=== PATIENT | female | born 1945 | race Caucasian/White ===

== ENCOUNTER → 2017-10-27 | Day surgery (SDC) | payer OTHER, MEDICAID ==
--- NOTE | 2017-10-25 18:24 | MH ---
cc: Myles HERNANDEZ DATE OF ADMISSION 10/27/2017 ADMISSION DIAGNOSIS Osteoarthritic degeneration of her right hip now being admitted for right total hip arthroplasty HISTORY OF PRESENT ILLNESS This pleasant 72-year-old female is being admitted today for right total hip arthroplasty due to severe painful osteoarthritic degeneration right hip. OTHER PAST HISTORY 1. History of hypertension, 2. Type 2 diabetes. MEDICATIONS Current, 1. Calcium citrate with D. 2. Magnesium 250 3. B complex vitamin 4. Levemir subcutaneous solution. 5. Lisinopril. 6. Oxybutinin. 7. Tramadol for pain. REVIEW OF SYSTEMS Noncontributory. FAMILY HISTORY Noncontributory PAST SURGERIES None listed, SOCIAL HISTORY She does not smoke or drink. ALLERGIES SULFA. PHYSICAL EXAMINATION GENERAL: We find a 72-year old female well-developed, well-nourished oriented x3 complaining of pain in her right hip. VITAL SIGNS: Blood pressure 130/82, pulse 92 and regular, respirations 18, temperature 97.9, pulse oximetry 97% on room air. HEENT: Eyes PERRL, EOMI. Ears, nose, mouth clear. NECK: Supple LUNGS: Clear HEART: Regular rate. ABDOMEN: Soft. Positive bowel sounds, nontender. EXTREMITIES: Reveals right hip to have decreased range of motion neurovascularly to her toes. IMPRESSION Severe painful osteoarthritic degeneration right hip. PLAN Admission right total hip arthroplasty today. The patient given prescription for postoperative pain anticoagulation control in the office, plans on going home after surgical stay in the hospital. She understands to use the surgical wipes and Bactroban ointment. MD CONRAD Bocanegra/ /5:34 PM /5:46 PM
[~2017-10-27] VITALS: Ht 165.1 cm; Wt 85.0 kg
[~2017-10-27] MED LIST: CHLORHEXIDINE GLUCONATE 2 % 1 PACK (2 CLOTHS) TOPICAL PRN; CHLORHEXIDINE GLUCONATE 4% SOLN 120 ML BTL TOPICAL SCH; CYAN1000P IM; D 50CAP2 PO; EXPAREL PERI-ARTICULAR INJECTION (TOTAL VOL. 120 ML) P-ARTICULR SCH; HYDR-3516 PO; LACTATED RINGER'S 1000 ML IV PRN; LEVEMIR SQ; LISI10TA3 PO; LOVA10TA PO; METOPROLOL TARTRATE 25 MG TAB PO PRN; OXYB5TAB8 PO; PANT20TA2 PO; POVIDONE IODINE 5% (ANTISEPSIS KIT) 4 APPLICATIONS EACH NARE PRN; SODIUM CHLORID 0.9% 500 ML IV PRN; TRANEXAMIC ACID INJ 850 MG in SODIUM CHLORIDE 0.9% INJ 100 ML IV SCH; VANCOMYCIN 1000 MG/NS 250 ML (for <70 kg) IV SCH; ceFAZolin 2 GM PREMIX 50 ML IV SCH; ceFAZolin INJ 1,000 MG VIAL ONE
[2017-10-27 06:15] VITALS: BP 149/83; PULSE 92; RESP 22; TEMP 99.6; O2SAT 100
[2017-10-27 06:48] LABS: BACTERIA, URINE OCC /hpf; BILIRUBIN, URINE NEG (NEG); BLOOD, URINE NEG (NEG); GLUCOSE,URINE NEG (NEG); KETONE, URINE NEG (NEG); MUCUS URINE FEW /lpf (OCC); NITRITE,URINE NEG (NEG); PH, URINE 5.5 (5.0-8.5); SQUAMOUS EPITHELIAL CELL URINE 14 /hpf (0-5); URINE COLOR YELLOW (YELLW/STRAW); URINE LEUKOCYTE ESTERASE SMALL (NEG)
[2017-10-27 07:26] LABS: AUTOMATED NEUTROPHIL # 4.1 TH/MM3 (1.8-7.7); BASOPHIL # 0.1 TH/MM3 (0-0.2); BASOPHIL % 0.9 % (0.0-2.0); EOSINOPHIL # 0.1 TH/MM3 (0-0.4); EOSINOPHIL % 1.4 % (0.0-4.0); HEMATOCRIT 26.9 % (35.0-46.0); HEMOGLOBIN 9.6 GM/DL (11.6-15.3); LYMPHOCYTE # 1.3 TH/MM3 (1.0-4.8); MEAN CELL VOLUME 88.1 FL (80.0-100.0); MEAN CORPUSCULAR HEMOGLOBIN 31.4 PG (27.0-34.0); MEAN CORPUSCULAR HGB CONC 35.7 % (32.0-36.0); MEAN PLATELET VOLUME 7.2 FL (7.0-11.0); MONO % 6.8 % (0.0-8.0); MONOCYTE # 0.4 TH/MM3 (0-0.9); NEUT % 68.9 % (16.0-70.0); PLATELET COUNT 161 TH/MM3 (150-450); RED BLOOD COUNT 3.06 MIL/MM3 (4.00-5.30); RED CELL DISTRIBUTION WIDTH 13.7 % (11.6-17.2)
--- NOTE | 2017-10-27 16:03 | EKG ---
Date Performed: 10/27/2017 Time Performed: 06:54:53 PTAGE: 72 years EKG: Sinus rhythm NORMAL ECG NO PREVIOUS TRACING DOCTOR: Amalia Cesar Interpretating Date/Time 10/27/2017 16:02:15
== END | disposition home or self-care (01) ==
LOC: HSDC 05:45 → HSDI 05:45 → UNDOADMIN 05:45 → HSDI 05:45 → EDSTATUS 08:00
PROVIDERS: ATTEND Surgery
DX: M16.11 Unilateral primary osteoarthritis, right hip (principal); I10 Essential (primary) hypertension; R79.9 Abnormal finding of blood chemistry, unspecified; R82.99 Other abnormal findings in urine; Z53.09 Procedure and treatment not carried out because of other contraindication
CPT/HCPCS: 81001; 85025; 86850; 86900; 86901; 87086; 93005; C9290; G0463; J0690; J7120; 99211

== ENCOUNTER 2018-02-20 05:32 | Inpatient (IN) | payer OTHER, MEDICARE, MEDICAID ==
--- NOTE | 2018-02-14 17:38 | MH ---
cc: Myles Gomez MD DATE OF ADMISSION: 02/20/2018 ADMITTING DIAGNOSIS: Osteoarthritic degeneration, right hip. HISTORY OF PRESENT ILLNESS: A pleasant 72-year-old female is being admitted today for a right total hip arthroplasty due to severe painful osteoarthritic degeneration. PAST MEDICAL HISTORY: The patient has a history of hypertension, type 2 diabetes. CURRENT MEDICATIONS: Include calcium citrate with D, B complex, Levemir, lisinopril, oxybutynin, and tramadol. PAST SURGICAL HISTORY: None listed. REVIEW OF SYSTEMS: Noncontributory. FAMILY HISTORY: Noncontributory. SOCIAL HISTORY: She does not smoke or drink. ALLERGIES: SULFA. PHYSICAL EXAMINATION: GENERAL: We find a 72-year-old female, well developed, well nourished, oriented x 3, complaining of pain in her right hip. VITAL SIGNS: Blood pressure 140/70, pulse 80 and regular, respirations 18, temperature 98.4, pulse oximetry 97% on room air. HEENT: Eyes PERRLA, EOMI. Ears, nose, mouth clear. NECK: Supple. LUNGS: Clear. HEART: Regular rate. ABDOMEN: Soft, positive bowel sounds, nontender. EXTREMITIES: Reveal right hip to be painful upon internal and external rotation. Neurovascularly intact to her toes. Recent x-rays reveal further deterioration of the hip joint and possible even microfracturing of the high neck of the femur, but everything is intact at the present time. IMPRESSION: At this time, severe painful osteoarthritic degeneration, right hip. PLAN: Admission for right total hip arthroplasty today. The patient given prescription for postoperative pain and anticoagulation control in the office and plans on going home with home health care after surgical stay in the hospital. She is to remain nonweightbearing until surgery. MD CONRAD Moore/ESTIVEN , 05:20 PM , 05:36 PM
[~2018-02-20] VITALS: Ht 165.1 cm; Wt 91.6 kg
[~2018-02-20 05:32] MED LIST changes: +ALLO100T PO; -CHLORHEXIDINE GLUCONATE 2 % 1 PACK (2 CLOTHS) TOPICAL PRN; -CHLORHEXIDINE GLUCONATE 4% SOLN 120 ML BTL TOPICAL SCH; -EXPAREL PERI-ARTICULAR INJECTION (TOTAL VOL. 120 ML) P-ARTICULR SCH; -LACTATED RINGER'S 1000 ML IV PRN; -METOPROLOL TARTRATE 25 MG TAB PO PRN; -PANT20TA2 PO; -POVIDONE IODINE 5% (ANTISEPSIS KIT) 4 APPLICATIONS EACH NARE PRN; -SODIUM CHLORID 0.9% 500 ML IV PRN; -TRANEXAMIC ACID INJ 850 MG in SODIUM CHLORIDE 0.9% INJ 100 ML IV SCH; -VANCOMYCIN 1000 MG/NS 250 ML (for <70 kg) IV SCH; -ceFAZolin 2 GM PREMIX 50 ML IV SCH; -ceFAZolin INJ 1,000 MG VIAL ONE
[2018-02-20] MEDS ORDERED: CHLORHEXIDINE GLUCONATE 2 % 1 PACK (2 CLOTHS) TOPICAL PRN (06:00)
[2018-02-20] MEDS ORDERED: METOPROLOL TARTRATE 25 MG TAB PO PRN (06:00)
[2018-02-20] MEDS ORDERED: TRANEXAMIC ACID INJ 904 MG in SODIUM CHLORIDE 0.9% INJ 100 ML IV SCH ×2 (06:00→09:00)
[2018-02-20] MEDS ORDERED: CHLORHEXIDINE GLUCONATE 4% SOLN 120 ML BTL TOPICAL SCH (06:00)
[2018-02-20] MEDS ORDERED: LACTATED RINGER'S 1000 ML IV PRN (06:00)
[2018-02-20] MEDS ORDERED: VANCOMYCIN 1 GM/200 ML PREMIX ON-CALL IV SCH (06:00)
[2018-02-20] MEDS ORDERED: SODIUM CHLORID 0.9% 500 ML IV PRN (06:00)
[2018-02-20] MEDS ORDERED: POVIDONE IODINE 5% (ANTISEPSIS KIT) 4 APPLICATIONS EACH NARE PRN (06:00)
[2018-02-20] MEDS ORDERED: INSULIN HUMAN REGULAR 1,000 UNITS/10 ML VIAL SQ PRN (06:00)
[2018-02-20] MEDS ORDERED: DEXAMETHASONE SOD PHOS 20 MG/5 ML VIAL IV PUSH ONE ×2 (06:00→07:30)
[2018-02-20] MEDS ORDERED: ceFAZolin 2 GM PREMIX 50 ML IV SCH (06:00)
[2018-02-20] MEDS ORDERED: ceFAZolin INJ 1,000 MG VIAL ONE (06:35)
[2018-02-20 07:28] LABS: BILIRUBIN, URINE NEG (NEG); BLOOD, URINE NEG (NEG); GLUCOSE,URINE NEG (NEG); KETONE, URINE NEG (NEG); MUCUS URINE FEW /lpf (OCC); NITRITE,URINE NEG (NEG); SQUAMOUS EPITHELIAL CELL URINE 1 /hpf (0-5); URINE COLOR COLORLESS (YELLW/STRAW); URINE LEUKOCYTE ESTERASE NEG (NEG)
[2018-02-20] MEDS ORDERED: EXPAREL PERI-ARTICULAR INJECTION (TOTAL VOL. 100 ML) P-ARTICULR SCH ×2 (07:30)
[2018-02-20] MEDS ORDERED: BUPIVACAINE LIPOSO PF 1.3% INJ 20 ML, BUPIVACAINE PF 0.25% INJ 20 ML in SODIUM CHLORIDE... P-ARTICULR SCH (07:30)
[2018-02-20] MEDS ORDERED: ACETAMINOPHEN 1000 MG/100 ML 100 ML IV ONE (10:10)
--- NOTE | 2018-02-20 10:10 | HHI.FF ---
Face to Face Verification Diagnosis: (1) Status post total hip replacement, right Physical Therapy Gait training Hip: Total hip, Protocol: Right, Posterior hip precautions, Abduction pillow while in bed, Progress to weight bearing Canvas Knee Splint: When in bed & 2 pillows btw thighs Nursing RN: 3 days/week x 2 weeks Dressing Changes: Do not change dressing I have seen patient Mariposa Ash on 02/20/18. My clinical findings support the need for the requested home health care services because: Limited ability to care for self High risk of falls I certify that my clinical findings support that this patient is homebound because: Unsteady gait/balance Myles Gomez MD February 20, 2018 10:10
[2018-02-20] MEDS ORDERED: WALKER WHEELS/F1 MIS (10:12)
[2018-02-20] MEDS ORDERED: ADJUSTABLE COMM1 MIS (10:13)
[2018-02-20] MEDS ORDERED: Post-op Orders (for Pharmacy) XX ONE (10:15)
[2018-02-20] MEDS ORDERED: CYANOCOBALAMIN 1000 MCG/ML VIAL IM SCH (10:15)
[2018-02-20] MEDS ORDERED: NALOXONE HCL 0.4 MG/ML AMP IV PUSH PRN (10:15)
[2018-02-20] MEDS ORDERED: NURSING INFORMATION XX PRN (10:15)
[2018-02-20] MEDS ORDERED: ONDANSETRON HCL 4 MG/2 ML VIAL IVP PRN (10:15)
[2018-02-20] MEDS ORDERED: ACETAMINOPHEN 325 MG TAB PO PRN (10:15)
[2018-02-20] MEDS ORDERED: TRANEXAMIC ACID INJ 0 MG in SODIUM CHLORIDE 0.9% INJ 100 ML IV SCH (10:15)
[2018-02-20] MEDS ORDERED: MORPHINE SULFATE 8 MG/ML INJ IV PUSH PRN (10:15)
[2018-02-20] MEDS ORDERED: *MEPERIDINE 25 MG INJ VIAL PERIprocedural Use ONLY ONE (10:37)
[2018-02-20] MEDS ORDERED: MORPHINE SULFATE 4 MG/ML INJ ONE (10:43)
--- NOTE | 2018-02-20 10:43 | MP ---
cc: Myles Gomez MD DATE OF OPERATION: 02/20/2018 PREOPERATIVE DIAGNOSIS: Osteoarthritic degeneration, right hip. POSTOPERATIVE DIAGNOSIS: Osteoarthritic degeneration, right hip. SURGERY PERFORMED: Right total hip arthroplasty using Aesculap components size 12 standard stem with a -4 x 36 mm ceramic head, a 52 cup with a 52 x 36 E-liner and one 6.5 x 32 x 32 mm screw. No cement utilized. SURGEON: Dr. Gomez. PETROLEUM ENGINEERING PROFESSOR: LEONORA Sanchez. ANESTHESIA: General intubation. PROCEDURE: The patient was brought to the Operating Room, where after successful induction of spinal anesthesia was placed on the operating room table in the right lateral decubitus position. The right hip, thigh and leg were prepped and draped in the usual manner. A posterolateral approach was then utilized by making an incision over the proximal portion of the femur lateral aspect, carried across the greater trochanter, carried posterior in a curved incision toward the buttock. The incision was carried down through the subcutaneous tissue, through the fibers of the tensor fascia jeffery and gluteus abraham to expose the greater trochanteric bursa. This was then removed by sharp and blunt dissection. The hip was then internally rotated to expose the insertions of the short external rotators of the hip and were incised at their insertion into the greater trochanter and reflected posterior to protect the sciatic nerve. These were held with a Charnley retractor to better visualize the hip joint. The capsule was identified and removed by sharp dissection. The hip was then dislocated by internal rotation and flexion of the hip. The femoral calcar was then measured using the trial components for the appropriate length cut of the neck using an oscillating saw. After the cut was made the head was removed. The acetabulum was then approached and measured, the acetabulum reamed with the acetabular reamers. Next, the femoral calcar was approached by first inserting a canal finder followed by rigid reamers, followed by a cookie-cutter to the appropriate size, in this case being a #15. The broach was left in place and a planer used to plane the calcar to a smooth finish. The broach was then removed. The trial components were then inserted into place, the hip reduced, found to track smoothly with no evidence of subluxation or dislocation. All trial components were removed. The wound was irrigated copiously with antibiotic solution and Water Pik. The actual components were then inserted and impacted into place using Aesculap components size 12 standard stem with a -4 x 36 mm ceramic head, a 52 cup with a 52 x 36 E-liner and one 6.5 x 32 x 32 mm screw. The hip was reduced, found to track smoothly with no evidence of subluxation or dislocation. The wound was irrigated copiously with antibiotic solution, meticulous hemostasis achieved. 60 mL of a mixture of Exparel, 0.25% Marcaine plain and normal saline was injected around the anterior aspect of the hip joint for extra pain control. The deep fascia proximally with running #2 Quill. Subcutaneous tissue approximated using interrupted running 2-0 and 3-0 Monocryl suture and Prineo dressing, abduction pillow, brace and knee immobilizer. No drain utilized. Sciatic nerve identified and protected throughout the procedure. LEONORA Sanchez was present during the entire procedure to include patient positioning and the procedure, the medical necessity of a nurse practitioner as employee relations assistant was indicated in this case due to the surgical complexity of the case itself. During the surgical case, the certified ophthalmic surgical assistant was working the back table while my surgical scrub tech, LEONORA, was directly assisting me. Estimated blood loss 300 mL. Sponge and suture counts were correct. The patient tolerated the procedure well and left the operating room in satisfactory condition. JAnamaria Gomez MD JRWanda/CHEIKH , 10:25 AM , 10:42 AM
[2018-02-20] MEDS: LACTATED RINGER'S 1000 ML INJ 1,000 ML IV SCH (10:45)
[2018-02-20] MEDS ORDERED: *morphine SULFATE 8 MG/ML PERIprocedure ONLY ONE (10:54)
--- NOTE | 2018-02-20 11:23 | RADRPT ---
EXAM DATE/TIME: 02/20/2018 11:49 [place] COMPARISON: No previous studies available for comparison. INDICATIONS : Post op right hip surgery MEDICAL HISTORY : None. SURGICAL HISTORY : None. ENCOUNTER: Initial ACUITY: 1 day PAIN SCORE: 5/10 LOCATION: Right hip FINDINGS: View of the right hip was obtained. There is a right hip prosthesis in place. The acetabular compone nt is secured by a screw into the ileum. The prosthetic components appear well-placed. CONCLUSION: Good placement of a right hip prosthesis. Wm Barrera MD on February 20, 2018 at 11:17 Board Certified Radiologist. This report was verified electronically.
[2018-02-20] MEDS ORDERED: BISACODYL 10 MG SUPP RECTAL PRN (11:30)
[2018-02-20] MEDS ORDERED: DO NOT ADM ANY ANTICOAGULANT DRUGS PRN (11:45)
[2018-02-20 12:00] VITALS: BP 112/56; PULSE 72; RESP 18; TEMP 97.2; O2SAT 98
[2018-02-20] MEDS ORDERED: LIDOCAINE HCL 1% PF 5 ML SYRINGE OTHER ONE (12:00)
[2018-02-20] MEDS ORDERED: GLYCOPYRROLATE 1 MG/5 ML SYRINGE IV PUSH ONE (12:00)
[2018-02-20] MEDS ORDERED: ePHEDrine/NS 25 MG/5 ML SYRINGE IV ONE (12:00)
[2018-02-20] MEDS ORDERED: ROCURONIUM INJ 50 MG/5 ML SYRINGE IV PUSH ONE (12:00)
[2018-02-20] MEDS ORDERED: PHENYLEPH/NS 1000 MCG/10 ML SYR IV ONE (12:00)
[2018-02-20] MEDS ORDERED: ONDANSETRON HCL 4 MG/2 ML VIAL IV ONE (12:00)
[2018-02-20] MEDS ORDERED: NEOSTIGMINE 5 MG/5 ML SYRINGE IV PUSH ONE (12:00)
[2018-02-20] MEDS ORDERED: DEXAMETHASONE SOD PHOS 4 MG/ML VIAL IV ONE (12:00)
[2018-02-20] MEDS ORDERED: PROPOFOL 200 MG/20 ML AMP IV ONE (12:00)
[2018-02-20] MEDS ORDERED: LABETALOL HCL 100 MG/20 ML VIAL IV ONE (12:00)
--- NOTE | 2018-02-20 15:11 | PD.CONS ---
HPI Service [facility] Hospitalists Consult Requested By Primary Care Physician No Primary Care Physician Diagnoses: History of Present Illness Mrs. Ash is a 72-year-old female. She is admitted for an elective surgery of her right hip. She seen postop and doing well. Pain is controlled. No nausea or vomiting. She has anemia at baseline and hemoglobin will be monitored closely. No other complaints from the patient today. She is eager to work with physical therapy and has intentions of returning to home as soon as possible. Review of Systems Ears, nose, mouth, throat: COMPLAINS OF: Throat pain Musculoskeletal: COMPLAINS OF: Joint pain, Stiffness, Joint Swelling Except as stated in HPI: all other systems reviewed are Neg Past Family Social History Allergies: Coded Allergies: Sulfa (Sulfonamide Antibiotics) (Unverified Allergy, Severe, HIVES, 02/20/18 ) Past Medical History Hyperlipidemia Hypertension Diabetes mellitus type 2 Gallop Chronic anemia Past Surgical History Lasik eye surgery Colon resection Appendectomy Hysterectomy Reported Medications Reported Meds & Active Scripts Active Reported Allopurinol 100 Mg Tab 100 Mg PO DAILY Cyanocobalamin Inj (Cyanocobalamin) 1,000 Mcg/Ml Inj 1,000 Mcg IM Q30D Ditropan (Oxybutynin Chloride) 5 Mg Tab 10 Mg PO DAILY Lovastatin 10 Mg Tab 10 Mg PO DAILY Lisinopril 10 Mg Tab 10 Mg PO DAILY Levemir Inj (Insulin Detemir) 1,000 unit/ 10 ML Vial 10 Units SQ DAILY Do not mix with any other Insulin. Hydrocodone-Acetaminophen 5-325 mg Tab 1 Tab PO Q4H PRN D3 Maximum Strength (Cholecalciferol) 5,000 Unit Cap 5,000 Units PO DAILY Active Ordered Medications Administered Medications Medications (Trade) Dose Ordered Sig/Sneha Route PRN Reason Start Time Stop Time Status Last Admin Dose Admin Lactated Ringer's 1,000 ml @ 30 mls/hr Q24H PRN IV SEE LABEL COMMENTS 02/20/18 06:00 02/23/18 05:59 02/20/18 07:00 Povidone Iodine (Betadine 5% Antisepsis Kit) 1 applic UPPER CUTTER OUT PRN EACH NARE SEE LABEL COMMENTS 02/20/18 06:00 02/23/18 05:59 02/20/18 07:00 Chlorhexidine Gluconate (Chlorhexidine 2% Cloth) 3 pack UPPER CUTTER OUT PRN TOPICAL SEE LABEL COMMENTS 02/20/18 06:00 02/23/18 05:59 02/20/18 06:30 Cefazolin Sodium/ Dextrose 50 ml @ 100 mls/hr UPPER CUTTER OUT IV 02/20/18 06:00 02/23/18 05:59 02/20/18 08:38 Vancomycin/Sodium Chloride 200 ml @ 200 mls/hr UPPER CUTTER OUT IV 02/20/18 06:00 02/23/18 05:59 02/20/18 08:37 Bupivacaine Liposome 20 ml/ Bupivacaine HCl 20 ml/Sodium Chloride 120 ml @ 240 mls/hr ONCE P-ARTICULR 02/20/18 07:30 02/21/18 07:29 02/20/18 09:49 Lactated Ringer's 1,000 ml @ 80 mls/hr [id number] IV 02/20/18 10:06 02/20/18 10:45 Cefazolin Sodium 1000 mg/Sodium Chloride 100 ml @ 200 mls/hr Q6H IV 02/20/18 14:00 02/21/18 02:29 02/20/18 14:53 Family History Patient does not know her family history Social History Past history of smoking, quit 34 years ago No alcohol abuse No illicit drug abuse Physical Exam Vital Signs Vital Signs Date Time Temp Pulse Resp B/P (MAP) Pulse Ox O2 Delivery O2 Flow Rate FiO2 02/20/18 12:00 97.2 72 18 112/56 (74) 98 02/20/18 11:45 67 16 105/54 (71) 100 Room Air 02/20/18 11:30 63 14 113/58 (76) 100 Room Air 02/20/18 11:15 65 12 108/56 (73) 100 Room Air 02/20/18 11:00 68 15 106/53 (70) 100 Room Air 02/20/18 10:45 75 12 116/58 (77) 100 Nasal Cannula 3 02/20/18 10:34 97.5 105 22 144/92 (109) 99 Nasal Cannula 3 02/20/18 06:34 97.8 75 20 147/69 (95) 99 Physical Exam GENERAL: NAD, A&Ox3 HEAD: Normocephalic. NECK: Supple, trachea midline. No lymphadenopathy. EYES: No scleral icterus. No injection or drainage. CARDIOVASCULAR: Regular rate and rhythm without murmurs, gallops, or rubs. RESPIRATORY: Breath sounds equal bilaterally. No accessory muscle use. GASTROINTESTINAL: Abdomen soft, non-tender, nondistended. MUSCULOSKELETAL: No cyanosis, or edema. Right hip has pain with range of motion , bandaged. SKIN: Warm and dry. NEURO: No focal neurological deficitis. Laboratory Laboratory Tests Test 02/20/18 07:06 Urine Color COLORLESS Urine Turbidity CLEAR Urine pH 6.0 Urine Specific [place] 1.009 Urine Protein NEG Urine Glucose (UA) NEG Urine Ketones NEG Urine Occult Blood NEG Urine Nitrite NEG Urine Bilirubin NEG Urine Urobilinogen LESS THAN 2.0 Urine Leukocyte Esterase NEG Urine RBC LESS THAN 1 Urine WBC LESS THAN 1 Urine Squamous Epithelial Cells 1 Urine Mucus FEW Microscopic Urinalysis Comment CATH-CULT NOT IND Imaging Last Impressions Hip X-Ray 02/20/18 1006 Signed Impressions: Service Date/Time: Tuesday, February 20, 2018 11:49 - CONCLUSION: Good placement of a right hip prosthesis. Wm Barrera MD Assessment and Plan Problem List: (1) Osteoarthritis of right hip ICD Code: M16.11 - Unilateral primary osteoarthritis, right hip (2) Diabetes mellitus ICD Code: E11.9 - Type 2 diabetes mellitus without complications (3) Hypertension ICD Code: I10 - Essential (primary) hypertension (4) Status post total hip replacement, right ICD Code: Z96.641 - Presence of right artificial hip joint Assessment and Plan 72-year-old female admitted for right hip replacement surgery Status post right hip arthroplasty Orthopedic surgeons following Continue physical therapy Continue pain medications as needed Check hemoglobin in a.m. Continue as needed pain treatments Hyperlipidemia Continue present treatment Follow as an outpatient Hypertension Continue baseline treatment Follow blood pressures Adjust treatments as needed Diabetes mellitus type 2 Follow blood sugars Insulin sliding scale Diabetic diet Gout No exacerbation Follow clinically Chronic anemia Follow CBC DVT prophylaxis Per discretion of surgeon Prasanna Riggins MD February 20, 2018 15:11
--- NOTE | 2018-02-20 15:13 | HHI.PR ---
Immediate Post Op Note Procedure Date: February 20, 2018 Pre Op Diagnosis: Osteoarthritic degeneration, right hip Post Op Diagnosis: Osteoarthritic degeneration, right hip Surgeon: Myles Gomez MD Outside Plant Supervisor(s): Susanna LEA Procedure: Right Total Hip Arthroplasty Complications: none Estimated blood loss: 300 cc Anesthesia: General Drains: None IVF Urinary Output (mLs): 0 (no soto) Tourniquet time (min at mmHg) none Patient to: PACU Patient Condition: Good Implant/Devices: SEE IMPLANT LOG (if applicable) Date/Time of Procedure: SEE SURGICAL CARE RECORD Susanna Grijalva February 20, 2018 15:13
[2018-02-20 15:44] VITALS: O2SAT 98
[2018-02-20 16:00] VITALS: BP 115/56; PULSE 87; RESP 18; TEMP 97.3; O2SAT 98
[2018-02-20] MEDS: ACETAMINOPHEN/HYDROcodone 325 MG/7.5 MG TAB PO PRN (18:16)
[2018-02-20 21:00] VITALS: BP 141/63; PULSE 70; RESP 17; TEMP 98.3; O2SAT 97
[2018-02-20] MEDS ORDERED: TEMAZEPAM 15 MG CAP PO PRN (21:00)
[2018-02-21] VITALS (7 sets, daily range): BP systolic 101–142; BP diastolic 51–66; PULSE 69–83; RESP 17–19; TEMP 97.1–98.3; O2SAT 96–100
[2018-02-21 05:19] LABS: HEMATOCRIT 23.7 % (35.0-46.0); HEMOGLOBIN 8.1 GM/DL (11.6-15.3); MEAN CORPUSCULAR HEMOGLOBIN 30.9 PG (27.0-34.0); MEAN CORPUSCULAR HGB CONC 34.3 % (32.0-36.0); PLATELET COUNT 140 TH/MM3 (150-450); RED BLOOD COUNT 2.64 MIL/MM3 (4.00-5.30); RED CELL DISTRIBUTION WIDTH 13.5 % (11.6-17.2); WHITE BLOOD COUNT 10.3 TH/MM3 (4.0-11.0)
[2018-02-21 05:43] LABS: BICARBONATE 25.6 MEQ/L (21.0-32.0); CALCIUM 7.9 MG/DL (8.5-10.1); CREATININE 1.23 MG/DL (0.50-1.00)
[2018-02-21] MEDS ORDERED: GLUCAGON 1 MG/ML VIAL OTHER PRN (07:45)
[2018-02-21] MEDS ORDERED: DEXTROSE 50% IN WATER 50 ML VIAL(D50) IV PUSH PRN (07:45)
[2018-02-21] MEDS: LACTATED RINGER'S 1000 ML INJ 1,000 ML IV SCH ×3 (08:16→19:28)
[2018-02-21] MEDS: CHOLECALCIFEROL (VIT D3) 5000 UNIT CAP PO SCH (08:17)
[2018-02-21] MEDS: PRAVASTATIN SOD 10 MG TAB PO SCH (08:17)
[2018-02-21] MEDS: ACETAMINOPHEN/HYDROcodone 325 MG/7.5 MG TAB PO PRN ×5 (08:17→22:20)
[2018-02-21] MEDS: LISINOPRIL 10 MG TAB PO SCH (08:18)
[2018-02-21] MEDS: APIXABAN 2.5 MG TABLET PO SCH ×2 (08:18→19:33)
[2018-02-21] MEDS: OXYBUTYNIN CHLORIDE 5 MG TAB PO SCH (08:18)
[2018-02-21] MEDS: ALLOPURINOL 100 MG TAB PO SCH (08:18)
[2018-02-21] MEDS: INSULIN DETEMIR 100 UNITS/ML VIAL SQ SCH (08:23)
--- NOTE | 2018-02-21 09:40 | HHI.PR ---
Subjective Remarks Follow-up for right CRISTOFER, HTN, HLD, DM, chronic anemia. The patient reports right hip pain, sitting in bedside chair. She had a bowel movement yesterday. Denies any other medical complaints. She states for her diabetes she takes Levemir 10 units in the morning, but does not take any other insulin, and her blood sugars are usually well controlled. Objective Vitals Vital Signs Date Time Temp Pulse Resp B/P (MAP) Pulse Ox O2 Delivery O2 Flow Rate FiO2 02/21/18 08:37 98.0 77 18 131/61 (84) 100 02/21/18 03:43 97.1 77 18 114/59 (77) 98 02/21/18 00:14 97.6 69 19 142/63 (89) 97 02/20/18 21:00 98.3 70 17 141/63 (89) 97 02/20/18 16:00 97.3 87 18 115/56 (75) 98 02/20/18 15:44 98 21 02/20/18 12:00 97.2 72 18 112/56 (74) 98 02/20/18 11:45 67 16 105/54 (71) 100 Room Air 02/20/18 11:30 63 14 113/58 (76) 100 Room Air 02/20/18 11:15 65 12 108/56 (73) 100 Room Air 02/20/18 11:00 68 15 106/53 (70) 100 Room Air 02/20/18 10:45 75 12 116/58 (77) 100 Nasal Cannula 3 02/20/18 10:34 97.5 105 22 144/92 (109) 99 Nasal Cannula 3 I/O 02/20/18 02/20/18 02/20/18 02/21/18 02/21/18 02/21/18 07:00 15:00 23:00 07:00 15:00 23:00 Intake Total 1200 ml 240 ml 480 ml Output Total 3300 ml Balance -2100 ml 240 ml 480 ml Intake Oral 240 ml 480 ml IV Total 1200 ml Output Estimated Blood Loss 300 ml Other 3000 ml # Voids 2 3 # Bowel Movements 0 0 Result Diagram: 02/21/18 0415 02/21/18 0415 Imaging Last Impressions Hip X-Ray 02/20/18 1006 Signed Impressions: Service Date/Time: Tuesday, February 20, 2018 11:49 - CONCLUSION: Good placement of a right hip prosthesis. Wm Barrera MD Objective Remarks GENERAL: Well-nourished, well-developed pleasant patient in NAD. SKIN: Warm and dry. No rash. HEENT: Normocephalic. Atraumatic. Pupils equal and round. Mucous membranes pink and moist. CARDIOVASCULAR: Regular rate and rhythm. No murmur appreciated. RESPIRATORY: No accessory muscle use. Clear to auscultation. Breath sounds equal bilaterally. GASTROINTESTINAL: Abdomen soft, non-tender, nondistended. Normoactive bowel sounds x4. MUSCULOSKELETAL: No obvious deformities. Extremities without clubbing, cyanosis , or edema. Right hip with surgical dressing, CDI. NEUROLOGICAL: Awake and alert. No obvious cranial nerve deficits. Motor grossly within normal limits. Moving all extremities spontaneously. Normal speech. PSYCHIATRIC: Appropriate mood and affect; insight and judgment normal. Procedures 02/20/18 - Right total hip arthroplasty by Dr. Gomez Medications and IVs Current Medications Medications (Trade) Dose Ordered Sig/Sneha Route Start Time Stop Time Status Last Admin Lactated Ringer's 1,000 ml @ 30 mls/hr Q24H PRN IV 02/20/18 06:00 02/23/18 05:59 02/20/18 07:00 Sodium Chloride 500 ml @ 30 mls/hr [id number] PRN IV 02/20/18 06:00 02/23/18 05:59 (Lopressor) 25 mg WORKERS COMPENSATION ATTORNEY PRN PO 02/20/18 06:00 02/23/18 05:59 (Betadine 5% Antisepsis Kit) 1 applic WORKERS COMPENSATION ATTORNEY PRN EACH NARE 02/20/18 06:00 02/23/18 05:59 02/20/18 07:00 (Chlorhexidine 2% Cloth) 3 pack WORKERS COMPENSATION ATTORNEY PRN TOPICAL 02/20/18 06:00 02/23/18 05:59 02/20/18 06:30 (NovoLIN R INJ) See Protocol Table ... WORKERS COMPENSATION ATTORNEY PRN SQ 02/20/18 06:00 02/23/18 05:59 (Hibiclens 4% Top Soln) 1 applic ONCE TOPICAL 02/20/18 06:00 02/23/18 05:59 Cefazolin Sodium/ Dextrose 50 ml @ 100 mls/hr WORKERS COMPENSATION ATTORNEY IV 02/20/18 06:00 02/23/18 05:59 02/20/18 08:38 Vancomycin/Sodium Chloride 200 ml @ 200 mls/hr WORKERS COMPENSATION ATTORNEY IV 02/20/18 06:00 02/23/18 05:59 02/20/18 08:37 (Zyloprim) 100 mg DAILY PO 02/21/18 09:00 02/21/18 08:18 (Vitamin D3) 5,000 units DAILY PO 02/21/18 09:00 02/21/18 08:17 (Vitamin B12 Inj) 1,000 mcg Q30D IM 02/20/18 10:15 (Levemir Inj) 10 units DAILY SQ 02/21/18 09:00 02/21/18 08:23 (Prinivil) 10 mg DAILY PO 02/21/18 09:00 02/21/18 08:18 (Pravachol) 10 mg DAILY PO 02/21/18 09:00 02/21/18 08:17 (Ditropan) 10 mg DAILY PO 02/21/18 09:00 02/21/18 08:18 Lactated Ringer's 1,000 ml @ 80 mls/hr [id number] IV 02/20/18 10:06 02/20/18 10:45 ([facility] [place] [facility]) UNSCH PRN XX 02/20/18 10:15 (Morphine Inj) 5 mg Q3H PRN IV PUSH 02/20/18 10:15 ([place] 7.5-325 Mg) 1 tab Q4H PRN PO 02/20/18 10:15 02/21/18 08:17 ([place] 7.5-325 Mg) 2 tab Q4H PRN PO 02/20/18 10:15 02/21/18 11:59 (Tylenol) 650 mg Q6H PRN PO 02/20/18 10:15 (Theragran M Tab) 1 tab BID PO 02/21/18 21:00 04/22/18 20:59 (Zofran Inj) 4 mg Q6H PRN IVP 02/20/18 10:15 (Colace) 100 mg BID PO 02/21/18 21:00 (Restoril) 15 mg HS PRN PO 02/20/18 21:00 (Dulcolax Supp) 10 mg DAILY PRN RECTAL 02/20/18 11:30 (Milk Of Magncamila Liq) 30 ml DAILY PRN PO 02/20/18 11:30 (Narcan Inj) 0.4 mg UNSCH PRN IV PUSH 02/20/18 10:15 (Eliquis) 2.5 mg BID PO 02/21/18 09:00 02/21/18 08:18 (D50w (Vial) Inj) 50 ml UNSCH PRN IV PUSH 02/21/18 07:45 (Glucagon Inj) 1 mg UNSCH PRN OTHER 02/21/18 07:45 (NovoLOG SUPPLEMENTAL SCALE) 1 ACHS SLIDING SCALE SQ 02/21/18 08:00 02/21/18 12:48 A/P Problem List: (1) Osteoarthritis of right hip ICD Code: M16.11 - Unilateral primary osteoarthritis, right hip (2) Diabetes mellitus ICD Code: E11.9 - Type 2 diabetes mellitus without complications (3) Hypertension ICD Code: I10 - Essential (primary) hypertension (4) Status post total hip replacement, right ICD Code: Z96.641 - Presence of right artificial hip joint Assessment and Plan 72-year-old female admitted for right hip replacement surgery Status post right hip arthroplasty on 02/20/[address] Gomez -Orthopedic surgeons following -Continue physical therapy -Continue pain medications as needed -Post op hemoglobin 8.1, monitor Hyperlipidemia -Continue patient's statin -Follow as an outpatient Hypertension -Continue patient's lisinopril 10 mg daily -Monitor BP, adjust antihypertensives as needed Diabetes mellitus, type 2 -Continue patient's levemir 10u sq daily -Monitor Accu-checks, cover with SSI -Diabetic diet Gout -No exacerbation -Follow clinically Chronic anemia -Post op Hgb 8.1 -Continue to monitor CBC, transfuse as needed DVT prophylaxis: On Eliquis per Arpita Wilson PA-C February 21, 2018 9:40 am
[2018-02-21] MEDS: INSULIN ASPART SUPPLEMENTAL SCALE SQ SCH ×4 (09:58→20:53)
--- NOTE | 2018-02-21 11:43 | PD.ORT.PN ---
Subjective Subjective Remarks Pt comfortable today with minimal complaints of pain. Objective Vitals Vital Signs Date Time Temp Pulse Resp B/P (MAP) Pulse Ox O2 Delivery O2 Flow Rate FiO2 02/21/18 10:31 100 21 02/21/18 08:37 98.0 77 18 131/61 (84) 100 02/21/18 03:43 97.1 77 18 114/59 (77) 98 02/21/18 00:14 97.6 69 19 142/63 (89) 97 02/20/18 21:00 98.3 70 17 141/63 (89) 97 02/20/18 16:00 97.3 87 18 115/56 (75) 98 02/20/18 15:44 98 21 02/20/18 12:00 97.2 72 18 112/56 (74) 98 02/20/18 11:45 67 16 105/54 (71) 100 Room Air I/O 02/20/18 02/20/18 02/20/18 02/21/18 02/21/18 02/21/18 07:00 15:00 23:00 07:00 15:00 23:00 Intake Total 1200 ml 240 ml 480 ml Output Total 3300 ml Balance -2100 ml 240 ml 480 ml Intake Oral 240 ml 480 ml IV Total 1200 ml Output Estimated Blood Loss 300 ml Other 3000 ml # Voids 2 3 # Bowel Movements 0 0 Result Diagram: 02/21/18 0415 02/21/18 0415 Imaging Last 48 hours Impressions Hip X-Ray 02/20/18 1006 Signed Impressions: Service Date/Time: Tuesday, February 20, 2018 11:49 - CONCLUSION: Good placement of a right hip prosthesis. Wm Barrera MD Objective Remarks Sitting up in chair at present. NV intact to toes. No calf tenderness. Assessment & Plan Ortho Post Op Day #: 1 Problem List: Assessment and Plan OOB with PT, WB as tolerated. Home vs SNF tomorrow. Myles Gomez MD February 21, 2018 11:43
[2018-02-21] MEDS: MULTIVITAMINS/MINERALS THERAPEUTIC TAB PO SCH (19:33)
[2018-02-21] MEDS: DOCUSATE SODIUM 100 MG CAP PO SCH ×2 (19:33→19:35)
[2018-02-21] MEDS: MAGNESIUM HYDROXIDE SUSP 30 ML CUP PO PRN (19:33)
[2018-02-22] VITALS: BP 107/54; PULSE 95; RESP 18; TEMP 98.1; O2SAT 97
[2018-02-22 04:00] VITALS: BP 113/56; PULSE 96; RESP 20; TEMP 98.4; O2SAT 98
[2018-02-22] MEDS: ACETAMINOPHEN/HYDROcodone 325 MG/7.5 MG TAB PO PRN ×4 (05:40→19:10)
[2018-02-22 07:55] LABS: HEMATOCRIT 25.6 % (35.0-46.0); HEMOGLOBIN 8.5 GM/DL (11.6-15.3)
[2018-02-22 08:00] VITALS: BP 104/54; PULSE 94; RESP 18; TEMP 98; O2SAT 98
[2018-02-22] MEDS: INSULIN ASPART SUPPLEMENTAL SCALE SQ SCH ×4 (08:00→21:00)
[2018-02-22 08:03] LABS: BASOPHIL % 0.2 % (0.0-2.0); EOSINOPHIL % 0.4 % (0.0-4.0); HEMATOCRIT 25.4 % (35.0-46.0); HEMOGLOBIN 8.5 GM/DL (11.6-15.3); LYMPH % 16.5 % (9.0-44.0); MEAN CELL VOLUME 91.2 FL (80.0-100.0); MEAN CORPUSCULAR HEMOGLOBIN 30.5 PG (27.0-34.0); MEAN CORPUSCULAR HGB CONC 33.4 % (32.0-36.0); MEAN PLATELET VOLUME 8.3 FL (7.0-11.0); MONO % 8.7 % (0.0-8.0); MONOCYTE # 1.1 TH/MM3 (0-0.9); NEUT % 74.2 % (16.0-70.0); PLATELET COUNT 162 TH/MM3 (150-450); RED BLOOD COUNT 2.78 MIL/MM3 (4.00-5.30); WHITE BLOOD COUNT 12.1 TH/MM3 (4.0-11.0)
--- NOTE | 2018-02-22 08:14 | PD.ORT.PN ---
Subjective Subjective Remarks Pt painful today. Objective Vitals Vital Signs Date Time Temp Pulse Resp B/P (MAP) Pulse Ox O2 Delivery O2 Flow Rate FiO2 02/22/18 04:00 98.4 96 20 113/56 (75) 98 02/22/18 00:00 98.1 95 18 107/54 (71) 97 02/21/18 20:00 98.3 83 17 111/56 (74) 97 02/21/18 16:07 97.6 81 18 106/51 (69) 96 02/21/18 11:30 97.9 78 18 101/66 (78) 100 02/21/18 10:31 100 21 02/21/18 08:37 98.0 77 18 131/61 (84) 100 I/O 02/21/18 02/21/18 02/21/18 02/22/18 02/22/18 02/22/18 07:00 15:00 23:00 07:00 15:00 23:00 Intake Total 480 ml 960 ml 340 ml Balance 480 ml 960 ml 340 ml Intake Oral 480 ml 960 ml 340 ml # Voids 3 5 3 # Bowel Movements 0 0 0 Result Diagram: 02/22/18 0625 02/21/18 0415 Imaging Last 48 hours Impressions Hip X-Ray 02/20/18 1006 Signed Impressions: Service Date/Time: Tuesday, February 20, 2018 11:49 - CONCLUSION: Good placement of a right hip prosthesis. Wm Barrera MD Objective Remarks Patient in bed at present with no braces on. Patient able to externally rotate her hip but quite painful. She is neurovascularly intact to her toes with negative Homans sign. Assessment & Plan Ortho Post Op Day #: 2 Problem List: Assessment and Plan OOB with PT, WB as tolerated. Home vs SNF tomorrow. Keep at least one brace on today. Myles Gomez MD February 22, 2018 08:14
[2018-02-22] MEDS: CHOLECALCIFEROL (VIT D3) 5000 UNIT CAP PO SCH (08:19)
[2018-02-22] MEDS: DOCUSATE SODIUM 100 MG CAP PO SCH ×2 (08:19→21:07)
[2018-02-22] MEDS: MULTIVITAMINS/MINERALS THERAPEUTIC TAB PO SCH ×2 (08:20→21:07)
[2018-02-22] MEDS: LISINOPRIL 10 MG TAB PO SCH (08:20)
[2018-02-22] MEDS: PRAVASTATIN SOD 10 MG TAB PO SCH (08:20)
[2018-02-22] MEDS: ALLOPURINOL 100 MG TAB PO SCH (08:20)
[2018-02-22] MEDS: OXYBUTYNIN CHLORIDE 5 MG TAB PO SCH (08:20)
[2018-02-22] MEDS: APIXABAN 2.5 MG TABLET PO SCH ×2 (08:20→21:08)
[2018-02-22 08:28] LABS: BICARBONATE 25.8 MEQ/L (21.0-32.0); CALCIUM 8.4 MG/DL (8.5-10.1); CREATININE 1.37 MG/DL (0.50-1.00)
[2018-02-22] MEDS: INSULIN DETEMIR 100 UNITS/ML VIAL SQ SCH (08:31)
--- NOTE | 2018-02-22 09:33 | HHI.PR ---
Subjective Remarks Follow up for right CRISTOFER, HTN, HLD, anemia. The patient reports slightly increased right hip pain today. No BM since prior to surgery but she feels she may have a BM today. Denies any abdominal pain, nausea/vomiting. Tolerating oral intake. No other medical complaints at this time. Objective Vitals Vital Signs Date Time Temp Pulse Resp B/P (MAP) Pulse Ox O2 Delivery O2 Flow Rate FiO2 02/22/18 08:00 98.0 94 18 104/54 (71) 98 02/22/18 04:00 98.4 96 20 113/56 (75) 98 02/22/18 00:00 98.1 95 18 107/54 (71) 97 02/21/18 20:00 98.3 83 17 111/56 (74) 97 02/21/18 16:07 97.6 81 18 106/51 (69) 96 02/21/18 11:30 97.9 78 18 101/66 (78) 100 02/21/18 10:31 100 21 I/O 02/21/18 02/21/18 02/21/18 02/22/18 02/22/18 02/22/18 07:00 15:00 23:00 07:00 15:00 23:00 Intake Total 480 ml 960 ml 340 ml Balance 480 ml 960 ml 340 ml Intake Oral 480 ml 960 ml 340 ml # Voids 3 5 3 # Bowel Movements 0 0 0 Result Diagram: 02/22/18 0625 02/22/18 0625 Imaging Last Impressions Hip X-Ray 02/20/18 1006 Signed Impressions: Service Date/Time: Tuesday, February 20, 2018 11:49 - CONCLUSION: Good placement of a right hip prosthesis. Wm Barrera MD Objective Remarks GENERAL: Well-nourished, well-developed pleasant patient in [facility]. SKIN: Warm and dry. No rash. HEENT: Normocephalic. Atraumatic. Pupils equal and round. Mucous membranes pink and moist. CARDIOVASCULAR: Regular rate and rhythm. No murmur appreciated. RESPIRATORY: No accessory muscle use. Clear to auscultation. Breath sounds equal bilaterally. GASTROINTESTINAL: Abdomen soft, non-tender, nondistended. Normoactive bowel sounds x4. MUSCULOSKELETAL: No obvious deformities. Extremities without clubbing, cyanosis , or edema. Right hip with surgical dressing, CDI. NEUROLOGICAL: Awake and alert. No obvious cranial nerve deficits. Motor grossly within normal limits. Moving all extremities spontaneously. Normal speech. PSYCHIATRIC: Appropriate mood and affect; insight and judgment normal. Procedures 02/20/18 - Right total hip arthroplasty by Dr. Gomez Medications and IVs Current Medications Medications (Trade) Dose Ordered Sig/Sneha Route Start Time Stop Time Status Last Admin Lactated Ringer's 1,000 ml @ 30 mls/hr Q24H PRN IV 02/20/18 06:00 02/23/18 05:59 02/20/18 07:00 Sodium Chloride 500 ml @ 30 mls/hr [id number] PRN IV 02/20/18 06:00 02/23/18 05:59 (Lopressor) 25 mg RUBBER TURNER PRN PO 02/20/18 06:00 02/23/18 05:59 (Betadine 5% Antisepsis Kit) 1 applic RUBBER TURNER PRN EACH NARE 02/20/18 06:00 02/23/18 05:59 02/20/18 07:00 (Chlorhexidine 2% Cloth) 3 pack RUBBER TURNER PRN TOPICAL 02/20/18 06:00 02/23/18 05:59 02/20/18 06:30 (NovoLIN R INJ) See Protocol Table ... RUBBER TURNER PRN SQ 02/20/18 06:00 02/23/18 05:59 (Hibiclens 4% Top Soln) 1 applic ONCE TOPICAL 02/20/18 06:00 02/23/18 05:59 Cefazolin Sodium/ Dextrose 50 ml @ 100 mls/hr RUBBER TURNER IV 02/20/18 06:00 02/23/18 05:59 02/20/18 08:38 Vancomycin/Sodium Chloride 200 ml @ 200 mls/hr RUBBER TURNER IV 02/20/18 06:00 02/23/18 05:59 02/20/18 08:37 (Zyloprim) 100 mg DAILY PO 02/21/18 09:00 02/22/18 08:20 (Vitamin D3) 5,000 units DAILY PO 02/21/18 09:00 02/22/18 08:19 (Vitamin B12 Inj) 1,000 mcg Q30D IM 02/20/18 10:15 (Levemir Inj) 10 units DAILY SQ 02/21/18 09:00 02/22/18 08:31 (Prinivil) 10 mg DAILY PO 02/21/18 09:00 02/22/18 08:20 (Pravachol) 10 mg DAILY PO 02/21/18 09:00 02/22/18 08:20 (Ditropan) 10 mg DAILY PO 02/21/18 09:00 02/22/18 08:20 Lactated Ringer's 1,000 ml @ 80 mls/hr [id number] IV 02/20/18 10:06 02/20/18 10:45 [place] [place] [facility] [place] UNSCH PRN XX 02/20/18 10:15 (Morphine Inj) 5 mg Q3H PRN IV PUSH 02/20/18 10:15 ([place] 7.5-325 Mg) 1 tab Q4H PRN PO 02/20/18 10:15 02/22/18 05:40 ([place] 7.5-325 Mg) 2 tab Q4H PRN PO 02/20/18 10:15 02/22/18 08:21 (Tylenol) 650 mg Q6H PRN PO 02/20/18 10:15 (Theragran M Tab) 1 tab BID PO 02/21/18 21:00 04/22/18 20:59 02/22/18 08:20 (Zofran Inj) 4 mg Q6H PRN IVP 02/20/18 10:15 (Colace) 100 mg BID PO 02/21/18 21:00 02/22/18 08:19 (Restoril) 15 mg HS PRN PO 02/20/18 21:00 (Dulcolax Supp) 10 mg DAILY PRN RECTAL 02/20/18 11:30 (Milk Of Magnesia Liq) 30 ml DAILY PRN PO 02/20/18 11:30 (Narcan Inj) 0.4 mg UNSCH PRN IV PUSH 02/20/18 10:15 (Eliquis) 2.5 mg BID PO 02/21/18 09:00 02/22/18 08:20 (D50w (Vial) Inj) 50 ml UNSCH PRN IV PUSH 02/21/18 07:45 (Glucagon Inj) 1 mg UNSCH PRN OTHER 02/21/18 07:45 (NovoLOG SUPPLEMENTAL SCALE) 1 ACHS SLIDING SCALE SQ 02/21/18 08:00 02/21/18 20:53 A/P Problem List: (1) Osteoarthritis of right hip ICD Code: M16.11 - Unilateral primary osteoarthritis, right hip (2) Diabetes mellitus ICD Code: E11.9 - Type 2 diabetes mellitus without complications (3) Hypertension ICD Code: I10 - Essential (primary) hypertension (4) Status post total hip replacement, right ICD Code: Z96.641 - Presence of right artificial hip joint Assessment and Plan 72-year-old female with history of HTN, HLD, DM, chronic anemia, admitted for right hip replacement surgery by Dr. Gomez Osteoarthritis s/p right total hip arthroplasty on 02/20/[address] Gomez -Orthopedic surgeon following -Continue physical therapy -Continue pain medications as needed, on [place] prn -Post op hemoglobin 8.1, monitor Hyperlipidemia -Continue patient's statin -Follow as an outpatient Hypertension -Continue patient's lisinopril 10 mg daily -Monitor BP, adjust antihypertensives as needed Diabetes mellitus, type 2 -Continue patient's levemir 10u sq daily -Monitor Accu-checks, cover with SSI -Diabetic diet Gout -No exacerbation -Follow clinically Chronic anemia -Post op Hgb 8.1 -Continue to monitor CBC, transfuse as needed -Hgb trended up, 8.5 today MAGAN -Cr elevated at 1.23 and 1.37 with elevated BUN 40, no previous labs to compare -will give IVF hydration x1L -repeat BMP in am DVT prophylaxis: On Eliquis per Arpita Wilson PA-C February 22, 2018 9:33 am
[2018-02-22] MEDS ORDERED: SODIUM CHLOR 0.9% 1000 ML INJ 1,000 ML IV SCH (10:45)
[2018-02-22 12:00] VITALS: BP 97/50; PULSE 95; RESP 18; TEMP 98.5; O2SAT 100
[2018-02-22] MEDS: LACTATED RINGER'S 1000 ML INJ 1,000 ML IV SCH ×2 (12:06→22:56)
[2018-02-22 16:00] VITALS: BP 113/55; PULSE 86; RESP 18; TEMP 97.9; O2SAT 98
[2018-02-22 20:00] VITALS: BP 117/58; PULSE 102; RESP 18; TEMP 98; O2SAT 99
[2018-02-23] VITALS: BP 156/68; PULSE 98; RESP 20; TEMP 98.6; O2SAT 100
[2018-02-23] MEDS: ACETAMINOPHEN/HYDROcodone 325 MG/7.5 MG TAB PO PRN ×4 (01:39→20:05)
[2018-02-23 04:00] VITALS: BP 134/83; PULSE 102; RESP 20; TEMP 99.4; O2SAT 96
[2018-02-23] MEDS: MAGNESIUM HYDROXIDE SUSP 30 ML CUP PO PRN (04:02)
[2018-02-23 06:45] LABS: HEMATOCRIT 23.8 % (35.0-46.0)
[2018-02-23 07:12] LABS: BICARBONATE 26.5 MEQ/L (21.0-32.0); CALCIUM 8.5 MG/DL (8.5-10.1); CREATININE 1.19 MG/DL (0.50-1.00)
[2018-02-23 08:00] VITALS: BP 121/57; PULSE 90; RESP 19; TEMP 98.6; O2SAT 97
[2018-02-23] MEDS: INSULIN ASPART SUPPLEMENTAL SCALE SQ SCH ×4 (08:00→20:13)
--- NOTE | 2018-02-23 08:15 | PD.ORT.PN ---
Subjective Subjective Remarks Patient is less painful today but very leery about going home. Objective Vitals Vital Signs Date Time Temp Pulse Resp B/P (MAP) Pulse Ox O2 Delivery O2 Flow Rate FiO2 02/23/18 08:00 98.6 90 19 121/57 (78) 97 02/23/18 04:00 99.4 102 20 134/83 (100) 96 02/23/18 02:29 18 02/23/18 00:00 98.6 98 20 156/68 (97) 100 02/22/18 20:00 98.0 102 18 117/58 (77) 99 02/22/18 16:00 97.9 86 18 113/55 (74) 98 02/22/18 12:00 98.5 95 18 97/50 (66) 100 I/O 02/22/18 02/22/18 02/22/18 02/23/18 02/23/18 02/23/18 07:00 15:00 23:00 07:00 15:00 23:00 Intake Total 340 ml 1380 ml 320 ml Balance 340 ml 1380 ml 320 ml Intake Oral 340 ml 480 ml 320 ml IV Total 900 ml # Voids 3 4 3 # Bowel Movements 0 0 Result Diagram: 02/23/18 0507 02/23/18 0508 Imaging Last 48 hours Impressions Hip X-Ray 02/20/18 1006 Signed Impressions: Service Date/Time: Tuesday, February 20, 2018 11:49 - CONCLUSION: Good placement of a right hip prosthesis. Wm Barrera MD Objective Remarks Patient in bed at present. She is neurovascular intact to her toes and has no calf tenderness today. Assessment & Plan Ortho Post Op Day #: 3 Problem List: Assessment and Plan OOB with PT, WB as tolerated. [facility] facility today. Myles Gomez MD February 23, 2018 08:15
[2018-02-23] MEDS ORDERED: HYDR-3516 PO (08:19)
--- NOTE | 2018-02-23 08:22 | HHI.DS ---
Discharge Summary Admission Date February 20, 2018 at 05:32 Discharge Date: February 23, 2018 Admitting Diagnosis Osteoarthritic degeneration right hip. Diagnosis: (1) Status post total hip replacement, right Diagnosis: Principal ICD Codes: Z96.641 - Presence of right artificial hip joint Brief History This is a 72 year old female patient CBC/BMP: 02/23/18 0507 02/23/18 0508 Significant Findings Laboratory Tests Test 02/21/18 04:15 02/22/18 06:25 02/23/18 05:07 02/23/18 05:08 Red Blood Count 2.64 MIL/MM3 (4.00-5.30) 2.78 MIL/MM3 (4.00-5.30) Hemoglobin 8.1 GM/DL (11.6-15.3) 8.5 GM/DL (11.6-15.3) 8.0 GM/DL (11.6-15.3) Hematocrit 23.7 % (35.0-46.0) 25.4 % (35.0-46.0) 23.8 % (35.0-46.0) Platelet Count 140 TH/MM3 (150-450) Blood Urea Nitrogen 29 MG/DL (7-18) 40 MG/DL (7-18) 36 MG/DL (7-18) Creatinine 1.23 MG/DL (0.50-1.00) 1.37 MG/DL (0.50-1.00) 1.19 MG/DL (0.50-1.00) Random Glucose 160 MG/DL (74-106) 123 MG/DL (74-106) 168 MG/DL (74-106) Calcium Level 7.9 MG/DL (8.5-10.1) 8.4 MG/DL (8.5-10.1) Estimat Glomerular Filtration Rate 43 ML/MIN (>89) 38 ML/MIN (>89) 45 ML/MIN (>89) White Blood Count 12.1 TH/MM3 (4.0-11.0) Neutrophils (%) (Auto) 74.2 % (16.0-70.0) Monocytes (%) (Auto) 8.7 % (0.0-8.0) Neutrophils # (Auto) 9.0 TH/MM3 (1.8-7.7) Monocytes # (Auto) 1.1 TH/MM3 (0-0.9) PE at Discharge Patient in bed at present. She is neurovascular intact to her toes and has no calf tenderness today. Hospital Course Patient underwent a right total hip arthroplasty on day of admission. She received a course of prophylactic IV antibiotics and within 23 hours started on anticoagulation therapy. She continued to improve tolerating food and fluids well and p.o. pain meds. She did have an episode of increased pain on postoperative day 2 when she was getting back into bed but then the pain receded and she was able to do well with her therapy. She became leery about going home and agreed to go to a long term facility for a while until she felt more confident in her activities of daily living. She was discharged on third postoperative day in a long term facility with instructions for continuation of care and continuation of prophylactic anticoagulation therapy. She was discharged in good condition. Pt Condition on Discharge: Good Discharge Disposition: Discharge to SNF Discharge Instructions Diet Instructions: Diabetic Diet Activities You Can Perform: Full Weight Bearing, Shower Only-No Bath Activities to Avoid: Bathing, Driving Myles Gomez MD February 23, 2018 08:22
[2018-02-23] MEDS: MULTIVITAMINS/MINERALS THERAPEUTIC TAB PO SCH ×2 (08:40→19:57)
[2018-02-23] MEDS: DOCUSATE SODIUM 100 MG CAP PO SCH ×2 (08:41→19:57)
[2018-02-23] MEDS: OXYBUTYNIN CHLORIDE 5 MG TAB PO SCH (08:41)
[2018-02-23] MEDS: ALLOPURINOL 100 MG TAB PO SCH (08:41)
[2018-02-23] MEDS: PRAVASTATIN SOD 10 MG TAB PO SCH (08:41)
[2018-02-23] MEDS: CHOLECALCIFEROL (VIT D3) 5000 UNIT CAP PO SCH (08:41)
[2018-02-23] MEDS: LISINOPRIL 10 MG TAB PO SCH (08:42)
[2018-02-23] MEDS: APIXABAN 2.5 MG TABLET PO SCH ×2 (08:42→19:57)
[2018-02-23] MEDS: INSULIN DETEMIR 100 UNITS/ML VIAL SQ SCH (08:43)
--- NOTE | 2018-02-23 10:36 | HHI.PR ---
Subjective Remarks Overall pain control. Eating well. No other complaints at this time. Objective Vitals Vital Signs Date Time Temp Pulse Resp B/P (MAP) Pulse Ox O2 Delivery O2 Flow Rate FiO2 02/23/18 08:00 98.6 90 19 121/57 (78) 97 02/23/18 04:00 99.4 102 20 134/83 (100) 96 02/23/18 02:29 18 02/23/18 00:00 98.6 98 20 156/68 (97) 100 02/22/18 20:00 98.0 102 18 117/58 (77) 99 02/22/18 16:00 97.9 86 18 113/55 (74) 98 02/22/18 12:00 98.5 95 18 97/50 (66) 100 I/O 02/22/18 02/22/18 02/22/18 02/23/18 02/23/18 02/23/18 06:59 14:59 22:59 06:59 14:59 22:59 Intake Total 340 ml 1380 ml 320 ml Balance 340 ml 1380 ml 320 ml Intake Oral 340 ml 480 ml 320 ml IV Total 900 ml # Voids 3 4 3 # Bowel Movements 0 0 Result Diagram: 02/23/18 0507 02/23/18 0508 Objective Remarks GENERAL: This is a well-nourished, well-developed patient, in no apparent distress. CARDIOVASCULAR: Regular rate and rhythm RESPIRATORY: Clear to auscultation. Breath sounds equal bilaterally. No wheezes , rales, or rhonchi. MUSCULOSKELETAL: Extremities without clubbing, cyanosis, or edema. Right hip bandage clean dry intact NEURO: Alert & Oriented x4 to person, place, time, situation. Moves all ext x4 Procedures 02/20/18 - Right total hip arthroplasty by Dr. Gomez A/P Problem List: (1) Osteoarthritis of right hip ICD Code: M16.11 - Unilateral primary osteoarthritis, right hip Status: Chronic (2) Diabetes mellitus ICD Code: E11.9 - Type 2 diabetes mellitus without complications Status: Chronic (3) Hypertension ICD Code: I10 - Essential (primary) hypertension Status: Chronic (4) Status post total hip replacement, right ICD Code: Z96.641 - Presence of right artificial hip joint Status: Acute Assessment and Plan 72-year-old female with history of HTN, HLD, DM, chronic anemia, admitted for right hip replacement surgery by Dr. Gomez Osteoarthritis status post operative day #3 right total hip arthroplasty ( surgery on 02/20/[address] Gomez) -Continue physical therapy -Continue pain medications as needed, on [place] prn -Post op hemoglobin 8.0, hemoglobin has been stable. Monitor Hyperlipidemia -Continue patient's statin -Follow as an outpatient Hypertension, chronic essential -Continue patient's lisinopril 10 mg daily -Monitor BP, adjust antihypertensives as needed Diabetes mellitus, type 2, overall blood sugars adequately controlled -Continue patient's levemir 10u sq daily -Monitor Accu-checks, cover with SSI -Diabetic diet Gout, history of -No exacerbation -Follow clinically Chronic anemia -Post op Hgb 8.1today's hemoglobin 8.0 has been stable. -Continue to monitor CBC, Acute kidney injury -Cr elevated at 1.23 and 1.37 with elevated BUN 40, no previous labs to compare, today's creatinine 1.1 with improvement. -Status post IVF hydration x1L yesterday DVT prophylaxis: On Eliquis per ortho Discharge Planning Anticipating discharge per orthopedic surgery Problem Qualifiers (1) Osteoarthritis of right hip: Qualified Codes: M16.11 - Unilateral primary osteoarthritis, right hip (2) Hypertension: Qualified Codes: I10 - Essential (primary) hypertension Emani Cline MD February 23, 2018 10:35
[2018-02-23 11:33] VITALS: BP 132/60; PULSE 109; RESP 20; TEMP 99; O2SAT 100
[2018-02-23] MEDS: LACTATED RINGER'S 1000 ML INJ 1,000 ML IV SCH (13:06)
[2018-02-23 15:33] VITALS: BP 119/58; PULSE 96; RESP 18; TEMP 99; O2SAT 99
[2018-02-23 20:00] VITALS: BP 120/56; PULSE 80; RESP 15; TEMP 98.9; O2SAT 96
[2018-02-24] VITALS: BP 103/58; PULSE 113; RESP 17; TEMP 98.9; O2SAT 99
[2018-02-24] MEDS: LACTATED RINGER'S 1000 ML INJ 1,000 ML IV SCH ×3 (01:36→20:48)
[2018-02-24] MEDS: MAGNESIUM HYDROXIDE SUSP 30 ML CUP PO PRN (02:58)
[2018-02-24] MEDS: ACETAMINOPHEN/HYDROcodone 325 MG/7.5 MG TAB PO PRN ×3 (02:58→20:43)
[2018-02-24 08:00] VITALS: BP 92/54; PULSE 109; RESP 16; TEMP 97.9; O2SAT 100
[2018-02-24] MEDS: INSULIN ASPART SUPPLEMENTAL SCALE SQ SCH ×4 (08:00→20:48)
[2018-02-24] MEDS: LISINOPRIL 10 MG TAB PO SCH (09:00)
[2018-02-24] MEDS: DOCUSATE SODIUM 100 MG CAP PO SCH ×2 (09:00→20:43)
--- NOTE | 2018-02-24 09:04 | HHI.PR ---
Subjective Remarks No complaints. Doing well overnight. Looking forward to going to rehab. Objective Vitals Vital Signs Date Time Temp Pulse Resp B/P (MAP) Pulse Ox O2 Delivery O2 Flow Rate FiO2 02/24/18 00:00 98.9 113 17 103/58 (73) 99 02/23/18 20:00 98.9 80 15 120/56 (77) 96 02/23/18 15:33 99.0 96 18 119/58 (78) 99 02/23/18 14:33 16 02/23/18 11:33 99.0 109 20 132/60 (84) 100 I/O 02/23/18 02/23/18 02/23/18 02/24/18 02/24/18 02/24/18 07:00 15:00 23:00 07:00 15:00 23:00 Intake Total 320 ml 800 ml 600 ml Balance 320 ml 800 ml 600 ml Intake Oral 320 ml 800 ml 600 ml # Voids 3 5 3 # Bowel Movements 0 0 Result Diagram: 02/23/18 0507 02/23/18 0508 Other Results Item Value Date Time Bedside Blood Glucose 115 mg/dl 02/24/18 0800 Bedside Blood Glucose 162 mg/dl 02/23/18 2100 Objective Remarks GENERAL: This is a well-nourished, well-developed patient, in no apparent distress. CARDIOVASCULAR: Regular rate and rhythm RESPIRATORY: Clear to auscultation. Breath sounds equal bilaterally. MUSCULOSKELETAL: Extremities without clubbing, cyanosis, or edema. Right hip bandage clean dry intact NEURO: Alert & Oriented x4 to person, place, time, situation. Moves all ext x4 Procedures 02/20/18 - Right total hip arthroplasty by Dr. Gomez A/P Problem List: (1) Osteoarthritis of right hip ICD Code: M16.11 - Unilateral primary osteoarthritis, right hip Status: Chronic (2) Diabetes mellitus ICD Code: E11.9 - Type 2 diabetes mellitus without complications Status: Chronic (3) Hypertension ICD Code: I10 - Essential (primary) hypertension Status: Chronic (4) Status post total hip replacement, right ICD Code: Z96.641 - Presence of right artificial hip joint Status: Acute Assessment and Plan 72-year-old female with history of HTN, HLD, DM, chronic anemia, admitted for right hip replacement surgery by Dr. Gomez Osteoarthritis status post operative day #4 right total hip arthroplasty ( surgery on 02/20/[address] Gomez) Continue physical therapy Continue pain medications as needed, on [place] prn -Post op hemoglobin 8.0 on 02/23, hemoglobin has been stable. Monitor Hyperlipidemia -Continue patient's statin -Follow as an outpatient Hypertension, chronic essential Continue patient's lisinopril 10 mg daily, overall controlled. Diabetes mellitus, type 2, overall blood sugars adequately controlled -Continue patient's levemir 10u sq daily -Monitor Accu-checks, cover with SSI -Diabetic diet Gout, history of -No exacerbation Chronic anemia -Post op hemoglobin has remained stable. -Continue to monitor CBC, Acute kidney injury - resolved. -Cr initially postoperatively elevated at 1.23 and 1.37 with elevated BUN 40 , no previous labs to compare, improved creatinine 1.1 yesterday. -Status post IVF hydration DVT prophylaxis: On Eliquis per ortho Discharge Planning Anticipating discharge per orthopedic surgery to [facility] facility today. Case management working on placement. Problem Qualifiers (1) Osteoarthritis of right hip: Qualified Codes: M16.11 - Unilateral primary osteoarthritis, right hip (2) Diabetes mellitus: (3) Hypertension: Qualified Codes: I10 - Essential (primary) hypertension Emani Cline MD February 24, 2018 09:04
[2018-02-24] MEDS: APIXABAN 2.5 MG TABLET PO SCH ×2 (09:54→20:43)
[2018-02-24] MEDS: OXYBUTYNIN CHLORIDE 5 MG TAB PO SCH (09:54)
[2018-02-24] MEDS: MULTIVITAMINS/MINERALS THERAPEUTIC TAB PO SCH ×2 (09:54→20:42)
[2018-02-24] MEDS: ALLOPURINOL 100 MG TAB PO SCH (09:54)
[2018-02-24] MEDS: PRAVASTATIN SOD 10 MG TAB PO SCH (09:55)
[2018-02-24] MEDS: CHOLECALCIFEROL (VIT D3) 5000 UNIT CAP PO SCH (09:55)
[2018-02-24] MEDS: INSULIN DETEMIR 100 UNITS/ML VIAL SQ SCH (09:55)
[2018-02-24 12:00] VITALS: BP 115/53; PULSE 96; RESP 17; TEMP 97.7; O2SAT 100
[2018-02-24 16:00] VITALS: BP 118/66; PULSE 92; RESP 18; TEMP 98.6; O2SAT 100
[2018-02-24] MEDS ORDERED: HOSP BED1 (17:34)
--- NOTE | 2018-02-24 17:36 | PD.ORT.PN ---
Subjective Subjective Remarks Patient plainning on home in AM. SNF denied by insurance. Objective Vitals Vital Signs Date Time Temp Pulse Resp B/P (MAP) Pulse Ox O2 Delivery O2 Flow Rate FiO2 02/24/18 16:00 98.6 92 18 118/66 (83) 100 02/24/18 13:44 18 02/24/18 12:00 97.7 96 17 115/53 (73) 100 02/24/18 08:00 97.9 109 16 92/54 (67) 100 02/24/18 00:00 98.9 113 17 103/58 (73) 99 02/23/18 20:00 98.9 80 15 120/56 (77) 96 I/O 02/23/18 02/23/18 02/23/18 02/24/18 02/24/18 02/24/18 07:00 15:00 23:00 07:00 15:00 23:00 Intake Total 320 ml 800 ml 600 ml Balance 320 ml 800 ml 600 ml Intake Oral 320 ml 800 ml 600 ml # Voids 3 5 3 # Bowel Movements 0 0 Result Diagram: 02/23/18 0507 02/23/18 0508 Imaging Last 48 hours Impressions Hip X-Ray 02/20/18 1006 Signed Impressions: Service Date/Time: Tuesday, February 20, 2018 11:49 - CONCLUSION: Good placement of a right hip prosthesis. Wm Barrera MD Objective Remarks Patient in chair She is neurovascular intact to her toes and has no calf tenderness today. Assessment & Plan Ortho Post Op Day #: 4 Problem List: (1) Status post total hip replacement, right ICD Codes: Z96.641 - Presence of right artificial hip joint Status: Acute Assessment and Plan OOB with PT, WB as tolerated. home with [facility]HC and PT in AM tomorrow. Hospital bed needed for patient to be able to get OOB. Myles Gomez MD February 24, 2018 17:36
[2018-02-24 20:00] VITALS: BP 137/60; PULSE 95; RESP 18; TEMP 97.7; O2SAT 100
[2018-02-25] VITALS: BP 111/52; PULSE 85; RESP 16; TEMP 98.4; O2SAT 96
[2018-02-25] MEDS: ACETAMINOPHEN/HYDROcodone 325 MG/7.5 MG TAB PO PRN ×3 (04:06→14:42)
[2018-02-25 08:00] VITALS: BP 117/56; PULSE 105; RESP 18; TEMP 98.3; O2SAT 99
[2018-02-25] MEDS: INSULIN ASPART SUPPLEMENTAL SCALE SQ SCH ×2 (08:00→12:00)
--- NOTE | 2018-02-25 08:24 | HHI.PR ---
Subjective Remarks in no acute distress. pain is controlled. no fever. Objective Vitals Vital Signs Date Time Temp Pulse Resp B/P (MAP) Pulse Ox O2 Delivery O2 Flow Rate FiO2 02/25/18 00:00 98.4 85 16 111/52 (71) 96 02/24/18 20:00 97.7 95 18 137/60 (85) 100 02/24/18 16:00 98.6 92 18 118/66 (83) 100 02/24/18 13:44 18 02/24/18 12:00 97.7 96 17 115/53 (73) 100 I/O 02/24/18 02/24/18 02/24/18 02/25/18 02/25/18 02/25/18 07:00 15:00 23:00 07:00 15:00 23:00 Intake Total 600 ml 1080 ml 480 ml Balance 600 ml 1080 ml 480 ml Intake Oral 600 ml 1080 ml 480 ml # Voids 3 7 5 # Bowel Movements 2 0 Result Diagram: 02/23/18 0507 02/23/18 0508 Imaging Last Impressions Hip X-Ray 02/20/18 1006 Signed Impressions: Service Date/Time: Tuesday, February 20, 2018 11:49 - CONCLUSION: Good placement of a right hip prosthesis. Wm Barrera MD Objective Remarks GENERAL: This is a well-nourished, well-developed patient, in no apparent distress. CARDIOVASCULAR: Regular rate and regular rhythm without murmurs, gallops, or rubs. RESPIRATORY: Clear to auscultation. Breath sounds equal bilaterally. No wheezes , rales, or rhonchi. GASTROINTESTINAL: Abdomen soft, non-tender, nondistended. Normal, active bowel sounds MUSCULOSKELETAL: Extremities without clubbing, cyanosis, or edema. NEURO: Alert & Oriented x4 to person, place, time, situation. Moves all ext x4 Procedures 02/20/18 - Right total hip arthroplasty by Dr. Gomez Medications and IVs Inpatient Medications Acetaminophen (Tylenol) 650 mg Q6H PRN PO FEVER Last administered on 02/22/18at 12:38; Start 02/20/18 at 10:15 Acetaminophen/ Hydrocodone Bitart ([place] 7.5-325 Mg) 2 tab Q4H PRN PO PAIN SCALE 5 TO 10 Last administered on 02/22/18at 08:21; Start 02/20/18 at 10:15 Allopurinol (Zyloprim) 100 mg DAILY PO Last administered on 02/24/18at 09:54; Start 02/21/18 at 09:00 Apixaban (Eliquis) 2.5 mg BID PO Last administered on 02/24/18at 20:43; Start at 09:00 Bisacodyl (Dulcolax Supp) 10 mg DAILY PRN RECTAL SEVERE CONSTIPATION; Start 02/20/18 at 11:30 Bupivacaine Liposome 20 ml/ Bupivacaine HCl 20 ml/Sodium Chloride 120 ml @ 240 mls/hr ONCE P-ARTICULR Last administered on 02/20/18at 09:49; Start 02/20/18 at 07 :30; Stop 02/21/18 at 07:29; Status DC Bupivacaine Liposome 20 ml/ Sodium Chloride 100 ml @ 200 mls/hr ONCE P- ARTICULR ; Start 02/20/18 at 07:30; Stop 02/20/18 at 07:30; Status DC Cefazolin Sodium 1000 mg/Sodium Chloride 100 ml @ 200 mls/hr Q6H IV Last administered on 02/21/18at 03:03; Start 02/20/18 at 14:00; Stop 02/21/18 at 02:29; Status DC Cefazolin Sodium/ Dextrose 50 ml @ 100 mls/hr [employer]INTAINER IV Last administered on 02/20/18at 08:38; Start 02/20/18 at 06:00; Stop 02/23/18 at 05:59; Status DC Chlorhexidine Gluconate (Chlorhexidine 2% Cloth) 3 pack [employer]IN[employer]ER PRN TOPICAL SEE LABEL COMMENTS Last administered on 02/20/18at 06:30; Start 02/20/18 at 06:00; Stop 02/23/18 at 05:59; Status DC Chlorhexidine Gluconate (Hibiclens 4% Top Soln) 1 applic ONCE TOPICAL ; Start at 06:00; Stop 02/23/18 at 05:59; Status DC Cholecalciferol (Vitamin D3) 5,000 units DAILY PO Last administered on at 09:55; Start 02/21/18 at 09:00 Cyanocobalamin (Vitamin B12 Inj) 1,000 mcg Q30D IM ; Start 02/20/18 at 10:15 Dexamethasone Sodium Phosphate (Decadron Inj) 10 mg ONCE ONCE IV PUSH ; Start 02/20/18 at 07:30; Stop 02/20/18 at 07:47; Status DC Dextrose (D50w (Vial) Inj) 50 ml UNSCH PRN IV PUSH HYPOGLYCEMIA-SEE COMMENTS; Start 02/21/18 at 07:45 Docusate Sodium (Colace) 100 mg BID PO Last administered on 02/24/18at 20:43; Start 02/21/18 at 21:00 Glucagon (Glucagon Inj) 1 mg UNSCH PRN OTHER HYPOGLYCEMIA-SEE COMMENTS; Start 02/21/18 at 07:45 Insulin Aspart (NovoLOG SUPPLEMENTAL SCALE) 1 ACHS SLIDING SCALE SQ Last administered on 02/24/18at 12:46; Start 02/21/18 at 08:00 Insulin Detemir (Levemir Inj) 10 units DAILY SQ Last administered on 02/24/18at 09:55; Start 02/21/18 at 09:00 Insulin Human Regular (NovoLIN R INJ) See Protocol Table ... [employer]IN[employer]ER PRN SQ SEE PROTOCOL TABLE; Start 02/20/18 at 06:00; Stop 02/23/18 at 05:59; Status DC Lactated Ringer's 1,000 ml @ 80 mls/hr [id number] IV Last administered on at 10:45; Start 02/20/18 at 10:06 Lisinopril (Prinivil) 10 mg DAILY PO Last administered on 02/23/18at 08:42; Start 02/21/18 at 09:00 Magnesium Hydroxide (Milk Of Magnesia Liq) 30 ml DAILY PRN PO MILD-MODERATE CONSTIPATION Last administered on 02/24/18at 02:58; Start 02/20/18 at 11:30 Metoprolol Tartrate (Lopressor) 25 mg [employer]IN[employer]ER PRN PO SEE LABEL COMMENTS; Start 02/20/18 at 06:00; Stop 02/23/18 at 05:59; Status DC Miscellaneous Information ([facility] Nursing Information) ALL NURSING DEPARTME... UNSCH PRN .XX SEE LABEL COMMENTS; Start 02/20/18 at 11:45; Stop 02/21/18 at 11:44 ; Status DC Miscellaneous Information ([facility] Post-op Orders (for Pharmacy)) STAT ONCE XX ; Start 02/20/18 at 10:15; Stop 02/20/18 at 11:04; Status DC Morphine Sulfate (Morphine Inj) 5 mg Q3H PRN IV PUSH Pain >7 when off CURATOR; Start 02/20/18 at 10:15 Multivitamins/ Minerals Therapeutic (Theragran M Tab) 1 tab BID PO Last administered on 02/24/18at 20:42; Start 02/21/18 at 21:00; Stop 04/22/18 at 20:59 Naloxone HCl (Narcan Inj) 0.4 mg UNSCH PRN IV PUSH RESPIRATORY RATE LESS THAN 10; Start 02/20/18 at 10:15 Ondansetron HCl (Zofran Inj) 4 mg Q6H PRN IVP NAUSEA OR VOMITING; Start at 10:15 Oxybutynin Chloride (Ditropan) 10 mg DAILY PO Last administered on 02/24/18at 09 :54; Start 02/21/18 at 09:00 Povidone Iodine (Betadine 5% Antisepsis Kit) 1 applic [employer]IN[employer]ER PRN EACH NARE SEE LABEL COMMENTS Last administered on 02/20/18at 07:00; Start 02/20/18 at 06:00; Stop 02/23/18 at 05:59; Status DC Pravastatin Sodium (Pravachol) 10 mg DAILY PO Last administered on 02/24/18at 09 :55; Start 02/21/18 at 09:00 Sodium Chloride 1,000 ml @ 100 mls/hr Q10H IV Last administered on 02/22/18at 10 :45; Start 02/22/18 at 10:45; Stop 02/22/18 at 20:44; Status DC Temazepam (Restoril) 15 mg HS PRN PO SLEEP; Start 02/20/18 at 21:00 Tranexamic Acid 904 mg/Sodium Chloride 109.04 ml @ 200 mls/ hr ONCE IV ; Start 02/20/18 at 09:00; Stop 02/20/18 at 15:00; Status DC Vancomycin/Sodium Chloride 200 ml @ 200 mls/hr [employer]IN[employer]ER IV Last administered on 02/20/18at 08:37; Start 02/20/18 at 06:00; Stop 02/23/18 at 05:59; Status DC A/P Problem List: (1) Osteoarthritis of right hip ICD Code: M16.11 - Unilateral primary osteoarthritis, right hip Status: Chronic (2) Diabetes mellitus ICD Code: E11.9 - Type 2 diabetes mellitus without complications Status: Chronic (3) Hypertension ICD Code: I10 - Essential (primary) hypertension Status: Chronic (4) Status post total hip replacement, right ICD Code: Z96.641 - Presence of right artificial hip joint Status: Acute Assessment and Plan Osteoarthritis status post operative day #4 right total hip arthroplasty ( surgery on 02/20/[address] Gomez) Continue physical therapy Continue pain medications as needed, on [place] prn Hyperlipidemia -Continue patient's statin -Follow as an outpatient Hypertension, chronic essential Continue patient's lisinopril 10 mg daily, overall controlled. Diabetes mellitus, type 2, overall blood sugars adequately controlled -Continue patient's levemir 10u sq daily -Monitor Accu-checks, cover with SSI -Diabetic diet Gout, history of -No exacerbation Chronic anemia -Post op hemoglobin has remained stable. -Continue to monitor CBC, Acute kidney injury - resolved. -Cr initially postoperatively elevated at 1.23 and 1.37 with elevated BUN 40 , no previous labs to compare, improved creatinine 1.1 yesterday. -Status post IVF hydration DVT prophylaxis; on Eliquis. Discharge Planning dc planning per ortho. Problem Qualifiers (1) Osteoarthritis of right hip: Qualified Codes: M16.11 - Unilateral primary osteoarthritis, right hip (2) Diabetes mellitus: (3) Hypertension: Qualified Codes: I10 - Essential (primary) hypertension Klarissa Little MD February 25, 2018 08:24
[2018-02-25] MEDS: DOCUSATE SODIUM 100 MG CAP PO SCH (09:27)
[2018-02-25] MEDS: MULTIVITAMINS/MINERALS THERAPEUTIC TAB PO SCH (09:27)
[2018-02-25] MEDS: LISINOPRIL 10 MG TAB PO SCH (09:27)
[2018-02-25] MEDS: APIXABAN 2.5 MG TABLET PO SCH (09:27)
[2018-02-25] MEDS: CHOLECALCIFEROL (VIT D3) 5000 UNIT CAP PO SCH (09:27)
[2018-02-25] MEDS: ALLOPURINOL 100 MG TAB PO SCH (09:27)
[2018-02-25] MEDS: OXYBUTYNIN CHLORIDE 5 MG TAB PO SCH (09:27)
[2018-02-25] MEDS: PRAVASTATIN SOD 10 MG TAB PO SCH (09:27)
[2018-02-25] MEDS: INSULIN DETEMIR 100 UNITS/ML VIAL SQ SCH (09:28)
[2018-02-25 12:00] VITALS: BP 110/52; PULSE 84; RESP 18; TEMP 97.6; O2SAT 92
== END 2018-02-25 15:08 | disposition home health service (06) | DRG 470 ==
LOC: HSDI 05:32 → N06B 12:09
PROVIDERS: ADMIT Surgery; ATTEND Surgery
PROC: 0SR904A Replacement of Right Hip Joint with Ceramic on Polyethylene Synthetic Substitute, Uncemented, Open Approach (ICD-10-PCS; principal; 2018-02-20 07:43)
DX: M16.11 Unilateral primary osteoarthritis, right hip (principal); N17.9 Acute kidney failure, unspecified; E11.9 Type 2 diabetes mellitus without complications; D64.9 Anemia, unspecified; I10 Essential (primary) hypertension; E78.5 Hyperlipidemia, unspecified; M10.9 Gout, unspecified; Z87.891 Personal history of nicotine dependence; Z79.4 Long term (current) use of insulin; Z79.899 Other long term (current) drug therapy
CPT/HCPCS: 73501; 80048; 81001; 82948; 85014; 85018; 85025; 85027; 86850; 86900; 86901; 94150; C1776; J0131; J0690; J1100; J1815; J2175; J2270; J2370; J2405; J2710; J3010; J3370; J7030; J7120; L1830

== ENCOUNTER 2018-03-05 11:08 | Emergency (ER) | payer OTHER, MEDICAID ==
[~2018-03-05] VITALS: Ht 167.6 cm; Wt 89.0 kg
[~2018-03-05 11:08] MED LIST changes: +ADJUSTABLE COMM1 MIS; +HOSP BED1; +WALKER WHEELS/F1 MIS
[2018-03-05 11:27] VITALS: BP 153/65; PULSE 80; RESP 16; O2SAT 100
[2018-03-05 11:29] VITALS: RESP 16; O2SAT 100
[2018-03-05] MEDS ORDERED: SODIUM CHLORIDE 0.9% FLUSH 10 ML FLUSH IVF PRN (11:30)
[2018-03-05 11:56] LABS: AUTOMATED NEUTROPHIL # 5.6 TH/MM3 (1.8-7.7); BASOPHIL % 0.7 % (0.0-2.0); EOSINOPHIL # 0.1 TH/MM3 (0-0.4); EOSINOPHIL % 1.7 % (0.0-4.0); HEMATOCRIT 23.9 % (35.0-46.0); HEMOGLOBIN 7.9 GM/DL (11.6-15.3); LYMPH % 16.3 % (9.0-44.0); LYMPHOCYTE # 1.2 TH/MM3 (1.0-4.8); MEAN CELL VOLUME 90.1 FL (80.0-100.0); MEAN CORPUSCULAR HEMOGLOBIN 29.9 PG (27.0-34.0); MEAN CORPUSCULAR HGB CONC 33.2 % (32.0-36.0); MEAN PLATELET VOLUME 6.4 FL (7.0-11.0); MONO % 5.4 % (0.0-8.0); MONOCYTE # 0.4 TH/MM3 (0-0.9); NEUT % 75.9 % (16.0-70.0); PLATELET COUNT 346 TH/MM3 (150-450); RED BLOOD COUNT 2.66 MIL/MM3 (4.00-5.30); RED CELL DISTRIBUTION WIDTH 13.1 % (11.6-17.2); WHITE BLOOD COUNT 7.4 TH/MM3 (4.0-11.0)
[2018-03-05 12:05] LABS: PROTHROMBIN TIME - PATIENT 10.2 SEC (9.8-11.6)
[2018-03-05 12:14] LABS: CALCIUM 8.8 MG/DL (8.5-10.1); CREATININE 1.29 MG/DL (0.50-1.00)
--- NOTE | 2018-03-05 12:19 | PD ---
HPI Chief Complaint: Abnormal Results Time Seen by Provider: 11:18 Travel History International Travel<30 days: No Contact w/Intl Traveler<30days: No Traveled to known affect area: No History of Present Illness HPI patient is a 72 year old female presents to the ER for evaluation of abnormal labs. Patient has no complaints. States she has a history of pernicous anemia since 1970. Also a recent hip replacement. Denies dizziness/weakness/SOB/ chest pain. PFSH Past Medical History Anemia: Yes Cancer: No Cardiovascular Problems: No High Cholesterol: Yes Diabetes: Yes (TYPE 2) Patient Takes Glucophage: No Diminished Hearing: No Endocrine: Yes Gastrointestinal Disorders: Yes (GERD) Gout: Yes Genitourinary: Yes (OVERACTIVE BLADDER) Hepatitis: No Hiatal Hernia: No Hypertension: Yes Immune Disorder: No Kidney Stones: Yes Musculoskeletal: Yes (OA) Neurologic: No Psychiatric: No Reproductive: No Respiratory: No Thyroid Disease: No Past Surgical History Abdominal Surgery: Yes (COLON RESECTION) AICD: No Appendectomy: Yes Cardiac Surgery: No Ear Surgery: No Endocrine Surgery: No Eye Surgery: Yes (LASIK) Genitourinary Surgery: Yes (KIDNEY STONE REMOVAL) Gynecologic Surgery: Yes (HYSTERECTOMY) Hysterectomy: Yes Joint Replacement: No Oral Surgery: No Pacemaker: No Thoracic Surgery: No Other Surgery: Yes (peritonitis) Social History Alcohol Use: No Tobacco Use: No (quit 34 years ago) Substance Use: No Allergies-Medications (Allergen,Severity, Reaction): Coded Allergies: Sulfa (Sulfonamide Antibiotics) (Unverified Allergy, Severe, HIVES, ) Reported Meds & Prescriptions Reported Meds & Active Scripts Active Hospital Bed - Electric 1 Ea Ea Ea .XX DIRECTED Hydrocodone-Acetaminophen 5-325 mg Tab 1 Tab PO Q4H PRN 14 Days Adjustable Commode 3-in-1 (Device) 1 Mis Mis Ea .XX DIRECTED Walker with Front Wheels (Device) 1 Mis Mis Ea .XX DIRECTED Reported Allopurinol 100 Mg Tab 100 Mg PO DAILY Cyanocobalamin Inj (Cyanocobalamin) 1,000 Mcg/Ml Inj 1,000 Mcg IM Q30D Ditropan (Oxybutynin Chloride) 5 Mg Tab 10 Mg PO DAILY Lovastatin 10 Mg Tab 10 Mg PO DAILY Lisinopril 10 Mg Tab 10 Mg PO DAILY Levemir Inj (Insulin Detemir) 1,000 unit/ 10 ML Vial 10 Units SQ DAILY Do not mix with any other Insulin. D3 Maximum Strength (Cholecalciferol) 5,000 Unit Cap 5,000 Units PO DAILY Review of Systems Except as stated in HPI: all other systems reviewed are Neg Physical Exam Narrative GENERAL: Well-nourished, well-developed patient. In no obvious distress peer SKIN: Focused skin assessment warm/dry. HEAD: Normocephalic. EYES: No scleral icterus. No injection or drainage. Conjunctival pallor noted. NECK: Supple, trachea midline. No JVD or lymphadenopathy. CARDIOVASCULAR: Regular rate and rhythm without murmurs, gallops, or rubs. RESPIRATORY: Breath sounds equal bilaterally. No accessory muscle use. No increased work of breathing. GASTROINTESTINAL: Abdomen soft, non-tender, nondistended. MUSCULOSKELETAL: No cyanosis, or edema. BACK: Nontender without obvious deformity. No CVA tenderness. Data Data Last Documented VS Vital Signs Date Time Temp Pulse Resp B/P (MAP) Pulse Ox O2 Delivery O2 Flow Rate FiO2 03/05/18 12:46 03/05/18 11:29 16 100 Room Air 03/05/18 11:27 80 Orders Orders Basic Metabolic Panel (Bmp) (03/05/18 11:27) Complete Blood Count With Diff (03/05/18 11:27) Type And Screen (03/05/18 11:27) Ecg Monitoring (03/05/18 11:27) Iv Access Insert/Monitor (03/05/18 11:27) Oximetry (03/05/18 11:27) Sodium Chloride 0.9% Flush (Ns Flush) (03/05/18 11:30) Act Partial Throm Time (Ptt) (03/05/18 11:27) Prothrombin Time / Inr (Pt) (03/05/18 11:27) Ed Discharge Order (03/05/18 12:40) Labs Laboratory Tests Test 03/05/18 11:30 White Blood Count 7.4 TH/MM3 Red Blood Count 2.66 MIL/MM3 Hemoglobin 7.9 GM/DL Hematocrit 23.9 % Mean Corpuscular Volume 90.1 FL Mean Corpuscular Hemoglobin 29.9 PG Mean Corpuscular Hemoglobin Concent 33.2 % Red Cell Distribution Width 13.1 % Platelet Count 346 TH/MM3 Mean Platelet Volume 6.4 FL Neutrophils (%) (Auto) 75.9 % Lymphocytes (%) (Auto) 16.3 % Monocytes (%) (Auto) 5.4 % Eosinophils (%) (Auto) 1.7 % Basophils (%) (Auto) 0.7 % Neutrophils # (Auto) 5.6 TH/MM3 Lymphocytes # (Auto) 1.2 TH/MM3 Monocytes # (Auto) 0.4 TH/MM3 Eosinophils # (Auto) 0.1 TH/MM3 Basophils # (Auto) 0.0 TH/MM3 CBC Comment DIFF FINAL Differential Comment Prothrombin Time 10.2 SEC Prothromb Time International Ratio 1.0 RATIO Activated Partial Thromboplast Time 30.1 SEC Blood Urea Nitrogen 22 MG/DL Creatinine 1.29 MG/DL Random Glucose 94 MG/DL Calcium Level 8.8 MG/DL Sodium Level 137 MEQ/L Potassium Level 5.1 MEQ/L Chloride Level 104 MEQ/L Carbon Dioxide Level 24.0 MEQ/L Anion Gap 9 MEQ/L Estimat Glomerular Filtration Rate 41 ML/MIN MDM Medical Decision Making Medical Screen Exam Complete: Yes Emergency Medical Condition: Yes Differential Diagnosis Acute anemia, chronic anemia, GI bleeding, pernicious anemia peer Narrative Course Patient room to the emergency department, her hemoglobin is 7.9 today, she is not having any severe symptoms of anemia. She states is been going on for years. Looking back to her records her hemoglobin seems to run about 8-8.5. Discussed the differential includes GI bleeding and recommended infusion outweigh the benefits at this time. She verbalized understanding and agreement would like to follow-up with her primary care physician. She is stable for discharge Diagnosis Primary Impression: Anemia Qualified Codes: D64.9 - Anemia, unspecified Disposition: 01 DISCHARGE HOME Condition: Stable Mj Bustos MD March 05, 2018 12:19
== END 2018-03-05 13:36 | disposition home or self-care (01) ==
LOC: NEPC 11:08
DX: D64.9 Anemia, unspecified (principal); I10 Essential (primary) hypertension; E11.9 Type 2 diabetes mellitus without complications; K21.9 Gastro-esophageal reflux disease without esophagitis; M10.9 Gout, unspecified; E78.00 Pure hypercholesterolemia, unspecified; Z79.4 Long term (current) use of insulin; Z87.448 Personal history of other diseases of urinary system; Z87.39 Personal history of other diseases of the musculoskeletal system and connective tissue
CPT/HCPCS: 80048; 85025; 85610; 85730; 86850; 86900; 86901; 99283